=== PATIENT | male | born 1980 | race Caucasian/White ===

== ENCOUNTER 2025-05-25 08:48 | Outpatient (CLI) | payer OTHER, SELFPAY | END 2025-05-25 08:49 | disposition home or self-care (01) | PROVIDERS: PCP Nurse Practitioner Family; Visit Provider Nurse Practitioner Family | DX: Z01.818 Encounter for other preprocedural examination (principal) | CPT/HCPCS: 80053; 85025 ==

== ENCOUNTER 2025-06-01 12:20 | Outpatient (CLI) | payer OTHER, SELFPAY ==
--- NOTE | 2025-06-01 13:31 | P.ANES_ITS ---
Anesthesia Charges Start Date/Time Anesthesia Start Date: 06/01/25 Anesthesia Start Time: 12:50 Stop Date/Time Anesthesia Stop Date: 06/01/25 Anesthesia Stop Time: 13:28 Coding CPT Codes CPT Codes: LEWIS LWR INTST NDSC NOS - [id number] ([id number]) P2 - PATIENT W/MILD SYST DISEASE, QK - CONSTRUCTION MANAGEMENT INSTRUCTOR 2-4 CNCRNT ANES PROC, QX - LAYOUT MECHANIC SVC W/ MD MED DIRECTION
--- NOTE | 2025-06-01 13:31 | W.ANESCHARGE ---
Anesthesia Charges Start Date/Time Anesthesia Start Date: 06/01/25 Anesthesia Start Time: 12:50 Stop Date/Time Anesthesia Stop Date: 06/01/25 Anesthesia Stop Time: 13:28 Coding CPT Codes CPT Codes: LEWIS LWR INTST NDSC NOS - [id number] ([id number]) P2 - PATIENT W/MILD SYST DISEASE, QK - PUNCH CARD OPERATOR 2-4 CNCRNT ANES PROC, QX - ASH CONVEYOR OPERATOR SVC W/ MD MED DIRECTION
--- NOTE | 2025-06-01 13:33 | P.ANES_ITS ---
Anesthesia Charges Start Date/Time Anesthesia Start Date: 06/01/25 Anesthesia Start Time: 12:50 Stop Date/Time Anesthesia Stop Date: 06/01/25 Anesthesia Stop Time: 13:28 Coding CPT Codes CPT Codes: LEWIS LWR INTST NDSC NOS - [id number] ([id number]) P2 - PATIENT W/MILD SYST DISEASE, QK - IT PROGRAMMER ANALYST 2-4 CNCRNT ANES PROC, QX - STOCKROOM SUPERVISOR SVC W/ MD MED DIRECTION
--- NOTE | 2025-06-01 13:33 | W.ANESCHARGE ---
Anesthesia Charges Start Date/Time Anesthesia Start Date: 06/01/25 Anesthesia Start Time: 12:50 Stop Date/Time Anesthesia Stop Date: 06/01/25 Anesthesia Stop Time: 13:28 Coding CPT Codes CPT Codes: LEWIS LWR INTST NDSC NOS - [id number] ([id number]) P2 - PATIENT W/MILD SYST DISEASE, QK - MANAGER NET 2-4 CNCRNT ANES PROC, QX - OTR REFRIGERATED CDL TRUCK DRIVER SVC W/ MD MED DIRECTION
== END 2025-06-01 12:21 | disposition home or self-care (01) ==
LOC: OP CLINIC 12:20
PROVIDERS: PCP Nurse Practitioner Family; Visit Provider Surgery
DX: Z12.11 Encounter for screening for malignant neoplasm of colon (principal); D12.3 Benign neoplasm of transverse colon; D12.8 Benign neoplasm of rectum
CPT/HCPCS: 00811; 00812; 45385; J2704